=== PATIENT | female | born 1960 | race Caucasian/White ===

== ENCOUNTER 2016-10-06 17:10 | Emergency (ER) | payer OTHER ==
[2016-10-06 17:20] VITALS: BP 154/94; PULSE 86; TEMP 97.9; BMI 29.2
[2016-10-06] MEDS ORDERED: KETOROLAC TROMETHAMINE 60 MG/2 ML VIAL IM ONE (17:52)
--- NOTE | 2016-10-06 17:55 | PDOC ---
History of Present Illness - General Chief Complaint: Injury Stated Complaint: INJURY Time Seen by Provider: 10/06/16 17:21 History Source: Patient Exam Limitations: No Limitations - History of Present Illness Initial Comments: 10/06/16 17:53 56 yr female with c/o pain to left buttock and thigh after she fell in a broken chair 4 days ago at a friends house. Pt states the pain is getting worse. Pt denies back pain no abd pain neg nvd neg urinary complaints. Pt denies numbness or tingling to leg. 10/06/16 18:53 Occurred: reports: last week Past History - Past Medical History Allergies/Adverse Reactions: Allergies Allergy/AdvReac Type Severity Reaction Status Date / Time No Known Allergies Allergy Verified 10/06/16 17:17 Home Medications: Ambulatory Orders Simvastatin 40 mg PO HS 10/12/11 Amlodipine Besylate [Norvasc -] 5 mg PO DAILY 03/02/13 Hydroxyzine HCl [Atarax -] 25 mg PO ASDIR 07/17/14 Cyclobenzaprine HCl [Flexeril 10 mg] 5 mg PO TID PRN #21 tablet 10/06/16 Naproxen [Naprosyn -] 500 mg PO BID PRN #20 tablet 10/06/16 Anemia: No Asthma: No CVA: Yes (Mini Stroke 2005) HTN: Yes Hypercholesterolemia: Yes - Surgical History Orthopedic Surgery: Yes (RIGHT ARM SURGERY; LEFT KNEE SURGERY -- arthroscopy surgery) - Immunization History Immunization Up to Date: Yes - Psycho/Social/Smoking Cessation Hx Anxiety: No Suicidal Ideation: No Smoking Status: No Smoking History: Former smoker Have you smoked in the past 12 months: Yes Number of Cigarettes Smoked Daily: 4 If you are a former smoker, when did you quit?: 09/08/2016 Information on smoking cessation initiated: No 'Breaking Loose' booklet given: 03/03/13 Hx Alcohol Use: No Drug/Substance Use Hx: No Substance Use Type: None Hx Substance Use Treatment: No Review of Systems - Review of Systems Able to Perform ROS?: Yes Is the patient limited [place] proficient: No Constitutional: No: Symptoms Reported HEENTM: No: Symptoms Reported Respiratory: No: Symptoms reported Cardiac (ROS): No: Symptoms Reported ABD/GI: No: Symptoms Reported : No: Symptoms Reported Musculoskeletal: Yes: See HPI *Physical Exam - Vital Signs Last Vital Signs Temp Pulse Resp BP Pulse Ox 97.9 F 86 18 154/94 98 10/06/16 17:17 10/06/16 17:17 10/06/16 17:17 10/06/16 17:17 10/06/16 17:17 - Physical Exam General Appearance: Yes: Nourished, Appropriately Dressed HEENT: positive: EOMI, JIM Neck: positive: Supple. negative: Tender, Tender lateral, Tender midline Respiratory/Chest: positive: Lungs Clear, Normal Breath Sounds Cardiovascular: positive: Regular Rhythm, Regular Rate Gastrointestinal/Abdominal: positive: Normal Bowel Sounds, Soft. negative: Tender Musculoskeletal: positive: Normal Inspection Extremity: positive: Normal Capillary Refill, Normal Inspection, Normal Range of Motion, Tender (left buttock to lateral thigh , no bony tenderness) Integumentary: positive: Normal Color, Dry, Warm Neurologic: positive: Fully Oriented, Alert, Normal Mood/Affect, Normal Response , Motor Strength 10/12 ED Treatment Course - RADIOLOGY Radiology Studies Ordered: Category Date Time Status FEMUR-LEFT [RAD] Stat Radiology 10/06/16 17:52 Ordered HIP & PELVIS-LEFT [RAD] Stat Radiology 10/06/16 17:52 Ordered Medical Decision Making - Medical Decision Making 10/06/16 17:55 cc: fall in a broken chair 4 days ago injured left buttock and thigh no back pain denies coccyx pain pain with movement of left leg when getting up from sitting to standing and walking position pt is ambulatory will give toradol xray to r/o fracture no saddle anesthesia neg vetebral tenderness 10/06/16 18:53 pt improved after toradol, ambulatory on discharge all dc inst discussed and all questions asked and answered pt agrees with plan and with follow up as this is important continuation in care wet read of xrays are negative for fracture we will call if the radiologist has any changes 10/06/16 19:32 *DC/Admit/Observation/Transfer Diagnosis at time of Disposition: Leg pain Qualifiers: Laterality: left Qualified Code(s): M79.605 - Pain in left leg - Discharge Dispostion Disposition: HOME Condition at time of disposition: Good - Prescriptions Prescriptions: Cyclobenzaprine HCl [Flexeril 10 mg] 5 mg PO TID PRN #21 tablet PRN Reason: Muscle Spasms Naproxen [Naprosyn -] 500 mg PO BID PRN #20 tablet PRN Reason: Pain - Referrals Referrals: Aliza Ovalle MD [Primary Care Provider] - Chava Mehta MD [Staff Physician] - - Patient Instructions Additional Instructions: follow with the orthopedist or your own primary care doctor for follow up in the next 3-5 days take the muscle relaxant as directed DO NOT DRIVE, OPERATE MACHINERY OR DRINK ALCOHOL WHILE TAKING FLEXERIL take naprosyn for pain as directed , you can take with the flexeril for better effect. Return to ER for any worsening symptoms or pain
[2016-10-06] MEDS ORDERED: KETOROLAC TROMETHAMINE 60 MG/2 ML VIAL ONE (17:56)
== END 2016-10-06 19:43 | disposition home or self-care (01) ==
LOC: JERFT 17:10 → SUPCPDRO 17:10 → JERFT 19:43
PROC: 3E0233Z Introduction of Anti-inflammatory into Muscle, Percutaneous Approach (ICD-10-PCS; principal; 2016-10-06)
DX: M79.605 Pain in left leg (principal); I10 Essential (primary) hypertension; E78.00 Pure hypercholesterolemia, unspecified; Z86.73 Personal history of transient ischemic attack (TIA), and cerebral infarction without residual deficits; W07.XXXA Fall from chair, initial encounter; Y93.89 Activity, other specified; Y92.098 Other place in other non-institutional residence as the place of occurrence of the external cause
CPT/HCPCS: 73523-TC; 73552-TC-LT; 96372; 99281-25